=== PATIENT | male | born 1990 | race American Indian/Alaskan Native ===

== ENCOUNTER 2022-01-28 23:23 | Inpatient (IN) | payer SELFPAY ==
[2022-01-28] MEDS ORDERED: SODIUM CHLORIDE 0.9% 1000 ML 1,000 ML IV ONE (23:26)
[2022-01-28] MEDS ORDERED: ONDANSETRON 4 MG/2 ML INJ IV ONE (23:28)
[2022-01-29 00:01] LABS: Hematocrit 49.4 % (35.5-45.6); Hemoglobin 16.2 gm/dl (11.8-15.2); Mean Corpuscular HGB Conc 33 % (32-34); Mean Corpuscular Volume 90 fl (84-94); Platelet Count 362 K/mm3 (140-440); Red Cell Distribution Width 12.9 % (13.2-15.2)
[2022-01-29 00:13] LABS: Alanine Aminotransferase 32 units/L (7-56); BUN/Creatinine Ratio 14; Blood Urea Nitrogen 15 mg/dL (9-20); Calcium 9.9 mg/dL (8.4-10.2); Hemolysis Index 13
[2022-01-29] MEDS ORDERED: ONDANSETRON 4 MG/2 ML INJ ONE (02:21)
[2022-01-29] MEDS ORDERED: SODIUM CHLORIDE 0.9% 1000 ML 1,000 ML IV ONE ×2 (02:36→05:21)
[2022-01-29] MEDS ORDERED: ONDANSETRON 4 MG/2 ML INJ IV ONE (02:36)
[2022-01-29] MEDS ORDERED: MORPHINE 4 MG/1 ML INJ IV ONE (02:36)
[2022-01-29 03:48] LABS: Basophils % (Manual) 0 % (0.0-1.8); Eosinophils % (Manual) 0 % (0.0-4.3); RBC Morphology Normal; Total Cells Counted 100
[2022-01-29] MEDS ORDERED: ACETAMINOPHEN 325 MG/10.15 ML ORAL LIQD UNIT DOSE PO ONE (04:05)
--- NOTE | 2022-01-29 04:53 | Cat Scan Report ---
CT abdomen pelvis w con INDICATION / CLINICAL INFORMATION: pain. TECHNIQUE: Axial CT imaging of abdomen and pelvis was obtained with 100 mL Omnipaque 350 IV contrast. Coronal an d sagittal reformatted imaging obtained and reviewed. All CT scans at this location are performed us ing CT dose reduction for ALARA by means of automated exposure control. COMPARISON: None available. FINDINGS: CT abdomen with contrast demonstrates mild to moderate hepatic steatosis. Liver is mildly enlarged. S pleen, kidneys, and adrenal glands appear unremarkable. Abdominal aorta is unremarkable. There is flu id noted throughout the mid upper abdomen in the general area of the pancreas. Although I do not see distinct evidence of acute pancreatitis, the fluid seen in the soft tissues adjacent to the pancreas would suggest the presence of acute or subacute pancreatitis. Gallbladder is present. No biliary dila tation. CT pelvis with contrast does not demonstrate mass, free fluid, or focal inflammatory process. Normal appendix is present in the right lower quadrant. GI tract is mostly normal. The transverse colon and descending colon are completely collapsed and is difficult to discern possible mild colitis versus co lonic collapse. Visualized lung bases are clear. No acute osseous abnormality noted. IMPRESSION: 1. Small amount of nonenhancing nonloculated fluid is seen in the upper abdomen, adjacent to the panc reas. The most likely etiology is due to acute or subacute pancreatitis. However, the pancreatic pare nchyma appears grossly normal time. Please correlate with amylase and lipase levels. 2. Mild to moderate hepatic steatosis. 3. Questionable mild colitis of the transverse and descending colon versus complete collapse of the c olon. Signer Name: Corrine Kulkarni MD Signed: 01/29/2022 4:48 AM Workstation Name: [id number]
[2022-01-29] MEDS ORDERED: ERTAPENEM 1 GM in SODIUM CHLORIDE 0.9% 50 ML IV ONE (05:07)
[2022-01-29] MEDS ORDERED: HYDROmorphone 2 MG/1 ML INJ IV ONE (05:22)
[2022-01-29 05:48] LABS: Amphetamine Screen,Urine Negative; Benzodiazepines Screen,Urine Negative; Cannabinoid Screen,Urine Negative; Cocaine Screen,Urine Negative; Methadone Screen,Urine Negative
[2022-01-29 06:03] LABS: Opiate Screen,Urine Positive
[2022-01-29 06:05] LABS: Color,Urine Yellow (Yellow)
--- NOTE | 2022-01-29 06:08 | Emergency Department Report ---
ED N/V/D HPI - General Chief complaint: Nausea/Vomiting/Diarrhea Stated complaint: VOMITING x3 DAYS PUI?: No Source: patient Mode of arrival: Ambulatory Limitations: No Limitations - History of Present Illness Initial comments: pt came in due to vomiting for 12 hours, taking alcohol for 3 days MD complaint: nausea, vomiting, abdominal pain -: Gradual, days(s) Description of Vomiting: food contents Associated Abdominal Pain: Yes Location: diffuse Severity: moderate Quality: aching Consistency: constant Improves with: none Worsens with: none Associated Symptoms: denies: denies other symptoms, myalgias - Related Data Allergies Allergy/AdvReac Type Severity Reaction Status Date / Time No Known Allergies Allergy Verified 01/29/22 01:05 ED Review of Systems ROS: Stated complaint: VOMITING x3 DAYS Other details as noted in HPI Constitutional: denies: chills, fever Eyes: denies: eye pain, eye discharge, vision change ENT: denies: ear pain, throat pain Respiratory: denies: cough, shortness of breath, wheezing Cardiovascular: denies: chest pain, palpitations Endocrine: no symptoms reported Gastrointestinal: denies: abdominal pain, nausea, diarrhea Genitourinary: denies: urgency, dysuria Musculoskeletal: denies: back pain, joint swelling, arthralgia Skin: denies: rash, lesions Neurological: denies: headache, weakness, paresthesias Psychiatric: denies: anxiety, depression Hematological/Lymphatic: denies: easy bleeding, easy bruising ED Past Medical Hx - Past Medical History Previous Medical History?: Yes Hx Hypertension: No Hx HIV: Yes - Surgical History Past Surgical History?: No - Social History Smoking Status: Current Every Day Smoker Substance Use Type: None ED Physical Exam - General Limitations: No Limitations General appearance: alert, in distress - Head Head exam: Present: atraumatic, normocephalic - Eye Eye exam: Present: normal appearance - ENT ENT exam: Present: mucous membranes moist - Neck Neck exam: Present: normal inspection - Respiratory Respiratory exam: Present: normal lung sounds bilaterally. Absent: respiratory distress - Cardiovascular Cardiovascular Exam: Present: regular rate, normal rhythm. Absent: systolic murmur, diastolic murmur, rubs, gallop - GI/Abdominal GI/Abdominal exam: Present: tenderness, normal bowel sounds - Rectal Rectal exam: Present: deferred - Extremities Exam Extremities exam: Present: normal inspection - Back Exam Back exam: Present: normal inspection - Neurological Exam Neurological exam: Present: alert, oriented X3 - Psychiatric Psychiatric exam: Present: normal affect, normal mood - Skin Skin exam: Present: warm, dry, intact, normal color. Absent: rash ED Course Vital Signs 01/29/22 01/29/22 01/29/22 01:03 02:26 03:58 Temperature 98.1 F 100.6 F H Pulse Rate 107 H 104 H Respiratory 18 20 21 Rate Blood Pressure 112/45 127/85 [Left] O2 Sat by Pulse 98 96 97 Oximetry 01/29/22 01/29/22 04:00 05:29 Temperature 100.0 F H Pulse Rate 89 Respiratory 20 16 Rate Blood Pressure 121/59 [Left] O2 Sat by Pulse 99 Oximetry ED Medical Decision Making - Lab Data Result diagrams: 01/28/22 23:35 01/28/22 23:35 - Radiology Data Radiology results: report reviewed, image reviewed - Medical Decision Making sepsis work up , fludis cultures and abx , pain meds and abx given ct scan shwoed pnacretaitis , will admit Critical care attestation.: If time is entered above; I have spent that time in minutes in the direct care of this critically ill patient, excluding procedure time. ED Disposition Clinical Impression: Fever, Pancreatitis, Colitis, Sepsis Disposition: ADMITTED INPATIENT Is pt being admited?: Yes Does the pt Need Aspirin: No Condition: Fair
[2022-01-29 06:12] LABS: Hyaline Casts,Urine 1 /LPF; Mucus,Urine 3+ /HPF
--- NOTE | 2022-01-29 07:17 | History and Physical Report ---
History of Present Illness Date of examination: 01/29/22 Date of admission: 01/29/22 Chief complaint: Abdominal pain Nausea vomiting diarrhea History of present illness: 31 years old male with past medical history of HIV and alcohol abuse was brought to the emergency room because of abdominal pain nausea vomiting and diarrhea for the last 12 hours. Patient is a alcohol abuser drinking alcohol for the last 3 days. Abdominal pain is 9/10. In the emergency room CT scan of the abdomen shows pancreatitis also mild to moderate hepatic steatosis and mild colitis of the transverse and descending colon versus complete collapse of the colon. Also patient WBC is 23.4. Lactic acid 9.50, potassium 3.3 and lipase 233. We are going to admit the patient. We will put the patient on IV fluid, nothing by mouth, antibiotic and consult GI for evaluation Past History Past Medical History: HIV/AIDS, other (Alcohol abuse) Past Surgical History: No surgical history Social history: smoking, alcohol abuse Family history: hypertension Medications and Allergies Allergies Allergy/AdvReac Type Severity Reaction Status Date / Time No Known Allergies Allergy Verified 01/29/22 01:05 Review of Systems All systems: negative Gastrointestinal: abdominal pain, nausea, vomiting, diarrhea Exam - Constitutional Vitals: Temp Pulse Resp BP Pulse Ox 99.9 F H 94 H 19 110/56 93 01/29/22 06:25 01/29/22 06:15 01/29/22 06:15 01/29/22 06:15 01/29/22 06:15 General appearance: Present: no acute distress, well-nourished - EENT Eyes: Present: PERRL ENT: hearing intact, clear oral mucosa - Neck Neck: Present: supple, normal ROM - Respiratory Respiratory effort: normal Respiratory: bilateral: CTA - Cardiovascular Heart Sounds: Present: S1 & S2. Absent: rub, click - Extremities Extremities: pulses symmetrical, No edema Peripheral Pulses: within normal limits - Abdominal General gastrointestinal: Present: soft, non-tender, non-distended, normal bowel sounds Male genitourinary: Present: normal - Integumentary Integumentary: Present: clear, warm, dry - Musculoskeletal Musculoskeletal: gait normal, strength equal bilaterally - Psychiatric Psychiatric: appropriate mood/affect, intact judgment & insight - Neurologic Neurologic: CNII-XII intact, moves all extremities HEART Score - HEART Score Troponin: Troponin T < 0.010 ng/mL (0.00-0.029) 01/28/22 23:35 Results - Labs CBC & Chem 7: 01/28/22 23:35 01/28/22 23:35 Labs: Laboratory Last Values WBC 23.4 K/mm3 (4.5-11.0) H 01/28/22 23:35 RBC 5.50 M/mm3 (3.65-5.03) H 01/28/22 23:35 Hgb 16.2 gm/dl (11.8-15.2) H 01/28/22 23:35 Hct 49.4 % (35.5-45.6) H 01/28/22 23:35 MCV 90 fl (84-94) 01/28/22 23:35 MCH 30 pg (28-32) 01/28/22 23:35 MCHC 33 % (32-34) 01/28/22 23:35 RDW 12.9 % (13.2-15.2) L 01/28/22 23:35 Plt Count 362 K/mm3 (140-440) 01/28/22 23:35 Add Manual Diff Complete 01/28/22 23:35 Total Counted 100 01/28/22 23:35 Seg Neuts % (Manual) 79.0 % (40.0-70.0) H 01/28/22 23:35 Band Neutrophils % 0 % 01/28/22 23:35 Lymphocytes % (Manual) 16.0 % (13.4-35.0) 01/28/22 23:35 Reactive Lymphs % (Man) 0 % 01/28/22 23:35 Monocytes % (Manual) 5.0 % (0.0-7.3) 01/28/22 23:35 Eosinophils % (Manual) 0 % (0.0-4.3) 01/28/22 23:35 Basophils % (Manual) 0 % (0.0-1.8) 01/28/22 23:35 Metamyelocytes % 0 % 01/28/22 23:35 Myelocytes % 0 % 01/28/22 23:35 Promyelocytes % 0 % 01/28/22 23:35 Blast Cells % 0 % 01/28/22 23:35 Nucleated RBC % Not Reportable 01/28/22 23:35 Seg Neutrophils # Man 18.5 K/mm3 (1.8-7.7) H 01/28/22 23:35 Band Neutrophils # 0.0 K/mm3 01/28/22 23:35 Lymphocytes # (Manual) 3.7 K/mm3 (1.2-5.4) 01/28/22 23:35 Abs React Lymphs (Man) 0.0 K/mm3 01/28/22 23:35 Monocytes # (Manual) 1.2 K/mm3 (0.0-0.8) H 01/28/22 23:35 Eosinophils # (Manual) 0.0 K/mm3 (0.0-0.4) 01/28/22 23:35 Basophils # (Manual) 0.0 K/mm3 (0.0-0.1) 01/28/22 23:35 Metamyelocytes # 0.0 K/mm3 01/28/22 23:35 Myelocytes # 0.0 K/mm3 01/28/22 23:35 Promyelocytes # 0.0 K/mm3 01/28/22 23:35 Blast Cells # 0.0 K/mm3 01/28/22 23:35 WBC Morphology Not Reportable 01/28/22 23:35 Hypersegmented Neuts Not Reportable 01/28/22 23:35 Hyposegmented Neuts Not Reportable 01/28/22 23:35 Hypogranular Neuts Not Reportable 01/28/22 23:35 Smudge Cells Not Reportable 01/28/22 23:35 Toxic Granulation Not Reportable 01/28/22 23:35 Toxic Vacuolation Not Reportable 01/28/22 23:35 Dohle Bodies Not Reportable 01/28/22 23:35 Pelger-Huet Anomaly Not Reportable 01/28/22 23:35 Gwen Rods Not Reportable 01/28/22 23:35 Platelet Estimate Not Reportable 01/28/22 23:35 Clumped Platelets Not Reportable 01/28/22 23:35 Plt Clumps, EDTA Not Reportable 01/28/22 23:35 Large Platelets Not Reportable 01/28/22 23:35 Giant Platelets Not Reportable 01/28/22 23:35 Platelet Satelliting Not Reportable 01/28/22 23:35 Plt Morphology Comment Not Reportable 01/28/22 23:35 RBC Morphology Normal 01/28/22 23:35 Dimorphic RBCs Not Reportable 01/28/22 23:35 Polychromasia Not Reportable 01/28/22 23:35 Hypochromasia Not Reportable 01/28/22 23:35 Poikilocytosis Not Reportable 01/28/22 23:35 Anisocytosis Not Reportable 01/28/22 23:35 Microcytosis Not Reportable 01/28/22 23:35 Macrocytosis Not Reportable 01/28/22 23:35 Spherocytes Not Reportable 01/28/22 23:35 Pappenheimer Bodies Not Reportable 01/28/22 23:35 Sickle Cells Not Reportable 01/28/22 23:35 Target Cells Not Reportable 01/28/22 23:35 Tear Drop Cells Not Reportable 01/28/22 23:35 Ovalocytes Not Reportable 01/28/22 23:35 Helmet Cells Not Reportable 01/28/22 23:35 Tan-Aleneva Bodies Not Reportable 01/28/22 23:35 Harmony Rings Not Reportable 01/28/22 23:35 Josh Cells Not Reportable 01/28/22 23:35 Bite Cells Not Reportable 01/28/22 23:35 Crenated Cell Not Reportable 01/28/22 23:35 Elliptocytes Not Reportable 01/28/22 23:35 Acanthocytes (Spur) Not Reportable 01/28/22 23:35 Rouleaux Not Reportable 01/28/22 23:35 Hemoglobin C Crystals Not Reportable 01/28/22 23:35 Schistocytes Not Reportable 01/28/22 23:35 Malaria parasites Not Reportable 01/28/22 23:35 Antonio Bodies Not Reportable 01/28/22 23:35 Hem Pathologist Commnt No 01/28/22 23:35 Sodium 139 mmol/L (137-145) 01/28/22 23:35 Potassium 3.3 mmol/L (3.6-5.0) L 01/28/22 23:35 Chloride 96.8 mmol/L (98-107) L 01/28/22 23:35 Carbon Dioxide 17 mmol/L (22-30) L 01/28/22 23:35 Anion Gap 29 mmol/L 01/28/22 23:35 BUN 15 mg/dL (9-20) 01/28/22 23:35 Creatinine 1.1 mg/dL (0.8-1.3) 01/28/22 23:35 Estimated GFR > 60 ml/min 01/28/22 23:35 BUN/Creatinine Ratio 14 % 01/28/22 23:35 Glucose 103 mg/dL (75-100) H 01/28/22 23:35 Ketones Quantitative Negative (Negative) 01/28/22 23:35 Lactic Acid 3.10 mmol/L (0.7-2.0) H* 01/29/22 05:00 Calcium 9.9 mg/dL (8.4-10.2) 01/28/22 23:35 Total Bilirubin 0.50 mg/dL (0.1-1.2) 01/28/22 23:35 AST 37 units/L (5-40) 01/28/22 23:35 ALT 32 units/L (7-56) 01/28/22 23:35 Alkaline Phosphatase 62 units/L (35-129) 01/28/22 23:35 Total Creatine Kinase 135 units/L (55-170) 01/28/22 23:35 Total Creatine Kinase 135 units/L (55-170) 01/28/22 23:35 Troponin T < 0.010 ng/mL (0.00-0.029) 01/28/22 23:35 Total Protein 8.7 g/dL (6.3-8.2) H 01/28/22 23:35 Albumin 5.0 g/dL (3.9-5) 01/28/22 23:35 Albumin/Globulin Ratio 1.4 % 01/28/22 23:35 Lipase 233 units/L (13-60) H 01/28/22 23:35 Urine Color Yellow (Yellow) 01/28/22 Unknown Urine Turbidity Clear (Clear) 01/28/22 Unknown Specific [place] (Man) 1.010 (1.003-1.030) 01/28/22 Unknown Ur Protein (Man) 1+ mg/dL (Negative) 01/28/22 Unknown Ur Ketones (Man) 4+ (Negative) 01/28/22 Unknown Ur Nitrite (Man) Negative (Negative) 01/28/22 Unknown Urine Bilirubin (Man) Negative (Negative) 01/28/22 Unknown Leukocyte Esterase (Man) Negative (Negative) 01/28/22 Unknown Urine WBC (Auto) 1.0 /HPF (0.0-6.0) 01/28/22 Unknown Urine RBC (Auto) 1.0 /HPF (0.0-6.0) 01/28/22 Unknown U Epithel Cells (Auto) < 1.0 /HPF (0-13.0) 01/28/22 Unknown Urine RBC (Manual) Negative (Negative) 01/28/22 Unknown Hyaline Casts 1 /LPF 01/28/22 Unknown Urine Mucus 3+ /HPF 01/28/22 Unknown Salicylates < 0.3 mg/dL (2.8-20.0) L 01/28/22 23:35 Urine Opiates Screen Positive 01/28/22 05:33 Urine Methadone Screen Negative 01/28/22 05:33 Ur Barbiturates Screen Negative 01/28/22 05:33 Ur Phencyclidine Scrn Negative 01/28/22 05:33 Ur Amphetamines Screen Negative 01/28/22 05:33 U Benzodiazepines Scrn Negative 01/28/22 05:33 Urine Cocaine Screen Negative 01/28/22 05:33 U Marijuana (THC) Screen Negative 01/28/22 05:33 Drugs of Abuse Note Disclamer 01/28/22 05:33 Plasma/Serum Alcohol 0.05 % (0-0.07) 01/28/22 23:35 - Imaging and Cardiology CT scan - abdomen: report reviewed Assessment and Plan VTE prophylaxis?: Chemical Plan of care discussed with patient/family: Yes - Patient Problems (1) Pancreatitis Status: Acute Plan to address problem: Admit the patient to the medical floor. NPO. D5 half-normal saline at the rate of 100 cc/h. Pepcid 20 mg IV every 12 hours. Levaquin 750 mg IV daily and metronidazole 500 mg IV every 12 hours. Morphine 2 mg IV every 4 hours as needed. GI consultation. (2) Colitis Status: Acute Plan to address problem: Levaquin 750 mg IV daily and metronidazole 500 mg IV every 12 hours. Morphine 2 mg IV every 4 hours as needed. GI consultation. (3) Alcohol abuse Status: Acute Plan to address problem: We counseled regarding quit drinking. We put the patient on thiamine folic acid and banana bag IV daily (4) Tobacco abuse Status: Acute Plan to address problem: We counseled the patient regarding quit smoking. We put the patient on nicotine patch. (5) Fever Status: Acute Plan to address problem: Tylenol 650 mg p.o. every 6 hours as needed. Levaquin 750 mg IV daily and metronidazole 500 mg IV every 12 hours. Morphine 2 mg IV every 4 hours as needed. GI consultation. (6) Sepsis Status: Acute Plan to address problem: NPO. D5 half-normal saline at the rate of 100 cc/h. Pepcid 20 mg IV every 12 hours. Levaquin 750 mg IV daily and metronidazole 500 mg IV every 12 hours. Morphine 2 mg IV every 4 hours as needed. GI consultation. (7) DVT prophylaxis Status: Acute
--- NOTE | 2022-01-29 07:22 | Ultrasound Report ---
ULTRASOUND ABDOMEN, LIMITED (RIGHT UPPER QUADRANT) INDICATION: pancreatitis. COMPARISON: CT abdomen/pelvis 01/29/2022 FINDINGS: Pancreas: Visualized portion shows no significant abnormality. Peripancreatic fluid noted on CT scan is not documented sonographically. Liver: The liver is mildly echogenic consistent with hepatic steatosis. Main portal vein is patent wi th hepatopedal flow. Gallbladder: Normal. No gallstones or gallbladder wall thickening. Bile ducts: Normal. Common Bile Duct measures 2 mm. Free fluid: None. Additional Findings: Right kidney is normal. IMPRESSION: 1. Mildly echogenic liver consistent with hepatic steatosis. 2. Sonographically the pancreas has a normal appearance. This does not exclude mild acute pancreatiti s. The small amount of fluid seen in the general region of the pancreas on CT scan earlier today is n ot appreciated sonographically. Signer Name: Corrine Kulkarni MD Signed: 01/29/2022 7:17 AM Workstation Name: [id number]
[2022-01-29] MEDS ORDERED: MORPHINE 4 MG/1 ML INJ IV PRN (08:00)
[2022-01-29] MEDS ORDERED: ONDANSETRON 4 MG/2 ML INJ IV PRN ×2 (08:30→18:00)
[2022-01-29] MEDS ORDERED: ALBUTEROL 2.5 MG/3 ML NEBU IH PRN (08:30)
[2022-01-29] MEDS ORDERED: ACETAMINOPHEN 325 MG TAB PO PRN (08:30)
[2022-01-29] MEDS: IPRATROPIUM/ALBUTEROL SULFATE 3 ML AMPUL.NEB IH SCH ×3 (09:00→20:37)
[2022-01-29] MEDS: metroNIDAZOLE/NS 500 MG/100 ML 500 MG/100 ML BAG IV SCH ×2 (09:30→16:03)
[2022-01-29] MEDS: HEPARIN 5,000 UNIT/1 ML VIAL SUB-Q SCH ×2 (12:05→22:31)
[2022-01-29] MEDS: D5W/0.45% NACL 1,000 ML IV SCH (13:05)
[2022-01-29] MEDS: MORPHINE 2 MG/1 ML INJ IV PRN ×2 (13:06→17:10)
[2022-01-29] MEDS: FAMOTIDINE 20 MG/2 ML INJ IV SCH ×2 (13:15→22:31)
--- NOTE | 2022-01-29 16:44 | Event Note ---
Date: 01/29/22 Full consult dictated - basic pancreatitis management - agree w/ IV antibiotics - conservative management - will follow
[2022-01-30] MEDS: metroNIDAZOLE/NS 500 MG/100 ML 500 MG/100 ML BAG IV SCH ×3 (01:38→19:17)
[2022-01-30] MEDS: D5W/0.45% NACL 1,000 ML IV SCH ×2 (01:42→22:50)
[2022-01-30 05:26] LABS: Basophils % (Auto) 0.4 % (0.0-1.8); Eosinophils # (Auto) 0.1 K/mm3 (0.0-0.4); Hematocrit 38.4 % (35.5-45.6); Hemoglobin 12.8 gm/dl (11.8-15.2); Lymphocytes # (Auto) 1.8 K/mm3 (1.2-5.4); Lymphocytes % (Auto) 17.8 % (13.4-35.0); Mean Corpuscular HGB Conc 33 % (32-34); Mean Corpuscular Volume 90 fl (84-94); Monocytes # (Auto) 0.7 K/mm3 (0.0-0.8); Monocytes % (Auto) 6.8 % (0.0-7.3); Platelet Count 218 K/mm3 (140-440); Red Blood Count 4.29 M/mm3 (3.65-5.03); Red Cell Distribution Width 12.8 % (13.2-15.2)
--- NOTE | 2022-01-30 05:37 | Consultation ---
DATE OF CONSULTATION: 01/29/2022 REFERRING PHYSICIAN: . INDICATION: Abdominal pain. HISTORY OF PRESENT ILLNESS: The patient is a 31-year-old male, HIV positive, alcohol abuse, presents for abdominal pain. The patient reports two to three days of nausea, vomiting, increased upper abdominal pain. The patient reports he does drink and has done so chronically. He reports no lower GI symptoms including diarrhea, constipation. The patient subsequently came to the Emergency Room where CT and labs were consistent with pancreatitis. The patient subsequently admitted and GI consulted to aid in management. The patient denies a history of pancreatitis in the past. No other specific complaints. PAST MEDICAL HISTORY: HIV positive. MEDICATIONS: Reviewed and updated in chart. ALLERGIES: No known drug allergies. SOCIAL HISTORY: Denies alcohol, tobacco or drug abuse. FAMILY HISTORY: Negative for colon cancer, IBD, or liver disease. REVIEW OF SYSTEMS: GENERAL: Reports some weakness. HEENT: Denies visual complaints or tinnitus. PULMONARY: Denies shortness of breath or chest pain. GASTROINTESTINAL: Reports abdominal pain, nausea or vomiting. All points of 13-point review of system otherwise negative. PHYSICAL EXAMINATION: VITAL SIGNS: Temperature of 98.7, pulse 64, respirations 18, blood pressure 120/70. GENERAL: Well-nourished male, in mild distress. HEENT: Pupils round and reactive. PULMONARY: Clear to auscultation bilaterally. CARDIOVASCULAR: Regular rate and rhythm. Normal S1, S2. ABDOMEN: Soft. SKIN: No obvious rashes. LABORATORY DATA: Pertinent for white count of 23.4, hemoglobin and hematocrit of 16.0 and 49.4, platelet count of 302. Chem-7: Sodium of 139, potassium 3.3, chloride 97, CO2 of 17, BUN and creatinine of 15 and 1.1, AST and ALT and total bilirubin within normal limits. Lipase of 223. CT scan abdomen and pelvis with contrast performed on 01/28/2022 showed small enlarging non-loculated fluid in the upper abdominal area adjacent to the pancreas, raising the possibility of subacute pancreatitis. Also, questionable mild colitis of the transverse and descending colon versus collapse of the colon. ASSESSMENT: A 31-year-old male with history of chronic alcohol abuse, human immunodeficiency virus positive, now presents with abdominal pain, nausea, vomiting. The patient had labs and CT scan raising possibility of pancreatitis. There is also question of colitis. The patient's symptoms do not suggest that. Management as noted below. PLAN: 1. We will review CT scan. 2. Basic pancreatitis management including n.p.o., IV fluids and pain medications. 3. Start p.o. when symptoms improved. 4. We will follow CRP. 5. Agree with Levaquin and Flagyl as ordered. 6. No indication for colonoscopy or endoscopy at this time. 7. When tolerating soft diet, okay to discharge from GI standpoint. 8. We will follow. TID: [id number] RECEIPT: [id number] CAB/RES/RAJESH cc:
[2022-01-30 05:45] LABS: BUN/Creatinine Ratio 7; Blood Urea Nitrogen 7 mg/dL (9-20); Calcium 8.5 mg/dL (8.4-10.2); Hemolysis Index 0
[2022-01-30] MEDS: FAMOTIDINE 20 MG/2 ML INJ IV SCH ×2 (09:58→22:49)
[2022-01-30] MEDS: HEPARIN 5,000 UNIT/1 ML VIAL SUB-Q SCH ×2 (09:58→22:49)
[2022-01-30] MEDS ORDERED: NON-FORMULARY EACH (Elviteg/Cob/Emtri/Tenof Alafen [Genvoya Tablet] 1 EACH Tablet) PO SCH (10:00)
--- NOTE | 2022-01-30 10:22 | Progress Note ---
Assessment and Plan Assessment and plan: #Sepsis secondary to acute pancreatitis #Acute colitis -likely secondary to alcohol abuse -continue IV hydration, PRN pain medications -will advance diet as tolerated -continue levaquin and flagyl for possible colitis seen on CT -GI following, assistance appreciated #Alcohol abuse #Tobacco abuse -patient reports binge drinking and lack of withdrawal when he is alcohol free -Smoking and alcohol cessation counseling, supportive care, behavior change counseling, +15 minutes #HIV infection -continue appropriate Genvoya substituted anti-retrovirals #Advanced care planning -Disease education conducted, care plan discussed, diagnoses discussed, prognosis discussed, and patient acknowledges understanding with care plan -Time: +30 min History Interval history: No acute events overnight. Patient reports binge drinking and has never had withdrawal in the past with alcohol cessation. He continues to have epigastric pain but his nausea/vomiting has resolved. He has no other complaints at this time. Hospitalist Physical - Physical exam Narrative exam: GENERAL: Well-developed well-nourished. In no acute distress. HEENT: Normocephalic. Atraumatic. NECK: Supple. CHEST/LUNGS: CTAB on room air HEART/CARDIOVASCULAR: RRR. No murmur, rubs or gallops appreciated. ABDOMEN: +BS. ND. TTP at the epigastric region. SKIN: No rashes noted. NEURO: No focal motor deficit. Follows all commands. MUSCULOSKELETAL: No joint effusion EXTREMITIES: No cyanosis, clubbing or edema. PSYCH: Cooperative. - Constitutional Vitals: Temp Pulse Resp BP Pulse Ox 98.7 F 64 16 120/68 98 01/29/22 12:58 01/29/22 12:58 01/30/22 01:00 01/29/22 12:58 01/30/22 01:00 General appearance: Present: no acute distress, well-nourished HEART Score - HEART Score Troponin: Troponin T < 0.010 ng/mL (0.00-0.029) 01/28/22 23:35 Results - Labs CBC & Chem 7: 01/30/22 04:46 01/30/22 04:46 Labs: Laboratory Last Values WBC 10.0 K/mm3 (4.5-11.0) 01/30/22 04:46 RBC 4.29 M/mm3 (3.65-5.03) 01/30/22 04:46 Hgb 12.8 gm/dl (11.8-15.2) D 01/30/22 04:46 Hct 38.4 % (35.5-45.6) D 01/30/22 04:46 MCV 90 fl (84-94) 01/30/22 04:46 MCH 30 pg (28-32) 01/30/22 04:46 MCHC 33 % (32-34) 01/30/22 04:46 RDW 12.8 % (13.2-15.2) L 01/30/22 04:46 Plt Count 218 K/mm3 (140-440) 01/30/22 04:46 Lymph % (Auto) 17.8 % (13.4-35.0) 01/30/22 04:46 [place] % (Auto) 6.8 % (0.0-7.3) 01/30/22 04:46 Eos % (Auto) 1.0 % (0.0-4.3) 01/30/22 04:46 Baso % (Auto) 0.4 % (0.0-1.8) 01/30/22 04:46 Lymph # (Auto) 1.8 K/mm3 (1.2-5.4) 01/30/22 04:46 [place] # (Auto) 0.7 K/mm3 (0.0-0.8) 01/30/22 04:46 Eos # (Auto) 0.1 K/mm3 (0.0-0.4) 01/30/22 04:46 Baso # (Auto) 0.0 K/mm3 (0.0-0.1) 01/30/22 04:46 Add Manual Diff Complete 01/28/22 23:35 Total Counted 100 01/28/22 23:35 Seg Neutrophils % 74.0 % (40.0-70.0) H 01/30/22 04:46 Seg Neuts % (Manual) 79.0 % (40.0-70.0) H 01/28/22 23:35 Band Neutrophils % 0 % 01/28/22 23:35 Lymphocytes % (Manual) 16.0 % (13.4-35.0) 01/28/22 23:35 Reactive Lymphs % (Man) 0 % 01/28/22 23:35 Monocytes % (Manual) 5.0 % (0.0-7.3) 01/28/22 23:35 Eosinophils % (Manual) 0 % (0.0-4.3) 01/28/22 23:35 Basophils % (Manual) 0 % (0.0-1.8) 01/28/22 23:35 Metamyelocytes % 0 % 01/28/22 23:35 Myelocytes % 0 % 01/28/22 23:35 Promyelocytes % 0 % 01/28/22 23:35 Blast Cells % 0 % 01/28/22 23:35 Nucleated RBC % Not Reportable 01/28/22 23:35 Seg Neutrophils # 7.4 K/mm3 (1.8-7.7) 01/30/22 04:46 Seg Neutrophils # Man 18.5 K/mm3 (1.8-7.7) H 01/28/22 23:35 Band Neutrophils # 0.0 K/mm3 01/28/22 23:35 Lymphocytes # (Manual) 3.7 K/mm3 (1.2-5.4) 01/28/22 23:35 Abs React Lymphs (Man) 0.0 K/mm3 01/28/22 23:35 Monocytes # (Manual) 1.2 K/mm3 (0.0-0.8) H 01/28/22 23:35 Eosinophils # (Manual) 0.0 K/mm3 (0.0-0.4) 01/28/22 23:35 Basophils # (Manual) 0.0 K/mm3 (0.0-0.1) 01/28/22 23:35 Metamyelocytes # 0.0 K/mm3 01/28/22 23:35 Myelocytes # 0.0 K/mm3 01/28/22 23:35 Promyelocytes # 0.0 K/mm3 01/28/22 23:35 Blast Cells # 0.0 K/mm3 01/28/22 23:35 WBC Morphology Not Reportable 01/28/22 23:35 Hypersegmented Neuts Not Reportable 01/28/22 23:35 Hyposegmented Neuts Not Reportable 01/28/22 23:35 Hypogranular Neuts Not Reportable 01/28/22 23:35 Smudge Cells Not Reportable 01/28/22 23:35 Toxic Granulation Not Reportable 01/28/22 23:35 Toxic Vacuolation Not Reportable 01/28/22 23:35 Dohle Bodies Not Reportable 01/28/22 23:35 Pelger-Huet Anomaly Not Reportable 01/28/22 23:35 Gwen Rods Not Reportable 01/28/22 23:35 Platelet Estimate Not Reportable 01/28/22 23:35 Clumped Platelets Not Reportable 01/28/22 23:35 Plt Clumps, EDTA Not Reportable 01/28/22 23:35 Large Platelets Not Reportable 01/28/22 23:35 Giant Platelets Not Reportable 01/28/22 23:35 Platelet Satelliting Not Reportable 01/28/22 23:35 Plt Morphology Comment Not Reportable 01/28/22 23:35 RBC Morphology Normal 01/28/22 23:35 Dimorphic RBCs Not Reportable 01/28/22 23:35 Polychromasia Not Reportable 01/28/22 23:35 Hypochromasia Not Reportable 01/28/22 23:35 Poikilocytosis Not Reportable 01/28/22 23:35 Anisocytosis Not Reportable 01/28/22 23:35 Microcytosis Not Reportable 01/28/22 23:35 Macrocytosis Not Reportable 01/28/22 23:35 Spherocytes Not Reportable 01/28/22 23:35 Pappenheimer Bodies Not Reportable 01/28/22 23:35 Sickle Cells Not Reportable 01/28/22 23:35 Target Cells Not Reportable 01/28/22 23:35 Tear Drop Cells Not Reportable 01/28/22 23:35 Ovalocytes Not Reportable 01/28/22 23:35 Helmet Cells Not Reportable 01/28/22 23:35 [place] Bodies Not Reportable 01/28/22 23:35 [place] Rings Not Reportable 01/28/22 23:35 [place] Cells Not Reportable 01/28/22 23:35 Bite Cells Not Reportable 01/28/22 23:35 Crenated Cell Not Reportable 01/28/22 23:35 Elliptocytes Not Reportable 01/28/22 23:35 Acanthocytes (Spur) Not Reportable 01/28/22 23:35 Rouleaux Not Reportable 01/28/22 23:35 Hemoglobin C Crystals Not Reportable 01/28/22 23:35 Schistocytes Not Reportable 01/28/22 23:35 Malaria parasites Not Reportable 01/28/22 23:35 [place] Bodies Not Reportable 01/28/22 23:35 Hem Pathologist Commnt No 01/28/22 23:35 Sodium 136 mmol/L (137-145) L 01/30/22 04:46 Potassium 3.6 mmol/L (3.6-5.0) 01/30/22 04:46 Chloride 99.5 mmol/L (98-107) 01/30/22 04:46 Carbon Dioxide 28 mmol/L (22-30) D 01/30/22 04:46 Anion Gap 12 mmol/L 01/30/22 04:46 BUN 7 mg/dL (9-20) L 01/30/22 04:46 Creatinine 1.0 mg/dL (0.8-1.3) 01/30/22 04:46 Estimated GFR > 60 ml/min 01/30/22 04:46 BUN/Creatinine Ratio 7 % 01/30/22 04:46 Glucose 92 mg/dL (75-100) 01/30/22 04:46 Ketones Quantitative Negative (Negative) 01/28/22 23:35 Lactic Acid 1.40 mmol/L (0.7-2.0) 01/29/22 07:30 Calcium 8.5 mg/dL (8.4-10.2) 01/30/22 04:46 Total Bilirubin 0.50 mg/dL (0.1-1.2) 01/28/22 23:35 AST 37 units/L (5-40) 01/28/22 23:35 ALT 32 units/L (7-56) 01/28/22 23:35 Alkaline Phosphatase 62 units/L (35-129) 01/28/22 23:35 Total Creatine Kinase 135 units/L (55-170) 01/28/22 23:35 Total Creatine Kinase 135 units/L (55-170) 01/28/22 23:35 Troponin T < 0.010 ng/mL (0.00-0.029) 01/28/22 23:35 Total Protein 8.7 g/dL (6.3-8.2) H 01/28/22 23:35 Albumin 5.0 g/dL (3.9-5) 01/28/22 23:35 Albumin/Globulin Ratio 1.4 % 01/28/22 23:35 Lipase 233 units/L (13-60) H 01/28/22 23:35 Urine Color Yellow (Yellow) 01/28/22 Unknown Urine Turbidity Clear (Clear) 01/28/22 Unknown Specific [place] (Man) 1.010 (1.003-1.030) 01/28/22 Unknown Ur Protein (Man) 1+ mg/dL (Negative) 01/28/22 Unknown Ur Ketones (Man) 4+ (Negative) 01/28/22 Unknown Ur Nitrite (Man) Negative (Negative) 01/28/22 Unknown Urine Bilirubin (Man) Negative (Negative) 01/28/22 Unknown Leukocyte Esterase (Man) Negative (Negative) 01/28/22 Unknown Urine WBC (Auto) 1.0 /HPF (0.0-6.0) 01/28/22 Unknown Urine RBC (Auto) 1.0 /HPF (0.0-6.0) 01/28/22 Unknown U Epithel Cells (Auto) < 1.0 /HPF (0-13.0) 01/28/22 Unknown Urine RBC (Manual) Negative (Negative) 01/28/22 Unknown Hyaline Casts 1 /LPF 01/28/22 Unknown Urine Mucus 3+ /HPF 01/28/22 Unknown Salicylates < 0.3 mg/dL (2.8-20.0) L 01/28/22 23:35 Urine Opiates Screen Positive 01/28/22 05:33 Urine Methadone Screen Negative 01/28/22 05:33 Ur Barbiturates Screen Negative 01/28/22 05:33 Ur Phencyclidine Scrn Negative 01/28/22 05:33 Ur Amphetamines Screen Negative 01/28/22 05:33 U Benzodiazepines Scrn Negative 01/28/22 05:33 Urine Cocaine Screen Negative 01/28/22 05:33 U Marijuana (THC) Screen Negative 01/28/22 05:33 Drugs of Abuse Note Disclamer 01/28/22 05:33 Plasma/Serum Alcohol 0.05 % (0-0.07) 01/28/22 23:35 Baptiste/IV: Voiding Method Toilet Active Medications - Current Medications Current Medications: Generic Name Dose Route Start Last Admin Trade Name Freq PRN Reason Stop Dose Admin Acetaminophen 650 mg 01/29/22 08:30 Acetaminophen 325 Mg Tab PO Q4H PRN Pain MILD(1-3)/Fever >100.5/R[place] Dolutegravir Sodium 50 mg 01/30/22 11:00 Dolutegravir 50 Mg Tab PO DAILY [place] Emtricitabine 200 mg 01/30/22 11:00 Emtricitabine 200 Mg Cap PO QDAY [place] Famotidine 20 mg 01/29/22 10:00 01/30/22 09:58 Famotidine 20 Mg/2 Ml Inj IV 20 mg BID [place] Administration Heparin Sodium (Porcine) 5,000 unit 01/29/22 10:00 01/30/22 09:58 Heparin 5,000 Unit/1 Ml Vial SUB-Q 5,000 unit Q12HR [place] Administration Dextrose/Sodium Chloride 1,000 mls @ 100 mls/hr 01/29/22 08:00 01/30/22 01:42 D5/0.45ns IV 100 mls/hr DIRECT [place] Administration Levofloxacin/Dextrose 750 mg in 150 mls @ 100 mls/hr 01/29/22 09:00 01/30/22 09:57 Levaquin 750mg/150ml IV 100 mls/hr Q24H [place] Administration Protocol Metronidazole 500 mg in 100 mls @ 100 mls/hr 01/29/22 09:00 01/30/22 09:57 Flagyl 500 Mg/100 Ml IV 100 mls/hr Q8H [place] Administration Protocol Morphine Sulfate 2 mg 01/29/22 08:30 01/29/22 17:10 Morphine 2 Mg/1 Ml Inj IV 2 mg Q4H PRN Administration Pain, Moderate (4-6) Morphine Sulfate 4 mg 01/29/22 08:00 01/29/22 22:35 Morphine 4 Mg/1 Ml Inj IV 4 mg Q4H PRN Administration Pain , Severe (7-10) Ondansetron HCl 4 mg 01/29/22 18:00 01/29/22 17:10 Ondansetron 4 Mg/2 Ml Inj IV 4 mg Q4H PRN Administration Nausea And Vomiting Sodium Chloride 10 ml 01/29/22 10:00 01/30/22 09:58 Sodium Chloride 0.9% 10 Ml Flush Syringe IV 10 ml BID [place] Administration Sodium Chloride 10 ml 01/29/22 08:30 Sodium Chloride 0.9% 10 Ml Flush Syringe IV PRN PRN LINE FLUSH Tenofovir Disoproxil Fumarate 300 mg 01/30/22 11:00 Tenofovir 300 Mg Tab PO QDAY [place]
[2022-01-30] MEDS: DOLUTEGRAVIR 50 MG TAB PO SCH (10:36)
[2022-01-30] MEDS: EMTRICITABINE 200 MG CAP PO SCH (10:36)
[2022-01-30] MEDS: TENOFOVIR 300 MG TAB PO SCH (10:36)
--- NOTE | 2022-01-30 14:38 | Gastroenterology Progress Note ---
Assessment and Plan 1. pt h/o alcohol abuse presents w/ abdominal pain with ct scan/labs consistent with pancreatitis and possible colitis - pt symptoms overall improved - start clear liquid diet, advance based on progress - follow labs - continue IV antibiotics - anti-emetics and pain meds as ordered - when tolerating soft diet and stable ok to dc from GI standpoint - no plans to scope - will follow Subjective Date of service: 01/30/22 Interval history: - reports pain overall improving, would like to start liquid diet Objective - Constitutional Vitals: Temp Pulse Resp BP Pulse Ox 98.7 F 64 16 120/68 98 01/29/22 12:58 01/29/22 12:58 01/30/22 01:00 01/29/22 12:58 01/30/22 12:21 General appearance: no acute distress - EENT Eyes: PERRL - Respiratory Respiratory: bilateral: CTA - Cardiovascular Rhythm: regular Heart Sounds: Present: S1 & S2 - Gastrointestinal General gastrointestinal: Present: soft, non-tender, non-distended - Labs CBC & Chem 7: 01/30/22 04:46 01/30/22 04:46 Labs: Laboratory Results - last 24 hr 01/30/22 01/30/22 04:46 04:46 WBC 10.0 RBC 4.29 Hgb 12.8 D Hct 38.4 D MCV 90 MCH 30 MCHC 33 RDW 12.8 L Plt Count 218 Lymph % (Auto) 17.8 [place] % (Auto) 6.8 Eos % (Auto) 1.0 Baso % (Auto) 0.4 Lymph # (Auto) 1.8 [place] # (Auto) 0.7 Eos # (Auto) 0.1 Baso # (Auto) 0.0 Seg Neutrophils % 74.0 H Seg Neutrophils # 7.4 Sodium 136 L Potassium 3.6 Chloride 99.5 Carbon Dioxide 28 D Anion Gap 12 BUN 7 L Creatinine 1.0 Estimated GFR > 60 BUN/Creatinine Ratio 7 Glucose 92 Calcium 8.5
[2022-01-31] MEDS: metroNIDAZOLE/NS 500 MG/100 ML 500 MG/100 ML BAG IV SCH ×3 (01:01→18:51)
[2022-01-31 07:19] LABS: C-Reactive Protein 11.4 mg/dL (0.00-1.30)
[2022-01-31 08:29] LABS: Basophils # (Auto) 0.1 K/mm3 (0.0-0.1); Basophils % (Auto) 0.7 % (0.0-1.8); Eosinophils # (Auto) 0.1 K/mm3 (0.0-0.4); Eosinophils % (Auto) 1.4 % (0.0-4.3); Hemoglobin 13.1 gm/dl (11.8-15.2); Lymphocytes # (Auto) 1.5 K/mm3 (1.2-5.4); Mean Corpuscular HGB Conc 34 % (32-34); Mean Corpuscular Volume 89 fl (84-94); Monocytes # (Auto) 0.5 K/mm3 (0.0-0.8); Platelet Count 222 K/mm3 (140-440); Red Blood Count 4.37 M/mm3 (3.65-5.03); Red Cell Distribution Width 12.6 % (13.2-15.2)
[2022-01-31 08:49] LABS: BUN/Creatinine Ratio 4; Blood Urea Nitrogen 4 mg/dL (9-20); Calcium 8.9 mg/dL (8.4-10.2); Hemolysis Index 1
[2022-01-31] MEDS: TENOFOVIR 300 MG TAB PO SCH (10:43)
[2022-01-31] MEDS: EMTRICITABINE 200 MG CAP PO SCH (10:44)
[2022-01-31] MEDS: DOLUTEGRAVIR 50 MG TAB PO SCH (10:44)
[2022-01-31] MEDS: HEPARIN 5,000 UNIT/1 ML VIAL SUB-Q SCH ×2 (10:45→21:30)
[2022-01-31] MEDS: FAMOTIDINE 20 MG TAB PO SCH ×2 (10:45→21:29)
[2022-01-31] MEDS: D5W/0.45% NACL 1,000 ML IV SCH (10:48)
[2022-01-31] MEDS: FAMOTIDINE 20 MG/2 ML INJ IV SCH (11:43)
--- NOTE | 2022-01-31 15:52 | Gastroenterology Progress Note ---
Assessment and Plan 1. GI: resolving pancreatitis - advance diet as tolerated - continue IV antibiotics, toltal 7 days - if stable in am ok to dc from GI standpoint - will follow Subjective Date of service: 01/31/22 Interval history: - reports pain much improved, tolerating advancing diet Objective - Constitutional Vitals: Temp Pulse Resp BP Pulse Ox 98.3 F 64 15 125/67 97 01/31/22 11:51 01/31/22 11:51 01/31/22 11:51 01/31/22 11:51 01/31/22 11:51 General appearance: no acute distress - EENT Eyes: PERRL - Respiratory Respiratory: bilateral: CTA - Cardiovascular Rhythm: regular Heart Sounds: Present: S1 & S2 - Gastrointestinal General gastrointestinal: Present: soft, non-tender, non-distended - Labs CBC & Chem 7: 01/31/22 07:47 01/31/22 07:47 Labs: Laboratory Results - last 24 hr 01/31/22 01/31/22 01/31/22 06:18 07:47 07:47 WBC 7.7 RBC 4.37 Hgb 13.1 Hct 39.0 MCV 89 MCH 30 MCHC 34 RDW 12.6 L Plt Count 222 Lymph % (Auto) 20.0 [place] % (Auto) 6.0 Eos % (Auto) 1.4 Baso % (Auto) 0.7 Lymph # (Auto) 1.5 [place] # (Auto) 0.5 Eos # (Auto) 0.1 Baso # (Auto) 0.1 Seg Neutrophils % 71.9 H Seg Neutrophils # 5.6 Sodium 136 L Potassium 3.3 L Chloride 98.2 Carbon Dioxide 30 Anion Gap 11 BUN 4 L Creatinine 0.9 Estimated GFR > 60 BUN/Creatinine Ratio 4 Glucose 95 Calcium 8.9 C-Reactive Protein 11.40 H Lipase 47
--- NOTE | 2022-01-31 17:27 | Progress Note ---
Assessment and Plan Assessment and plan: #Sepsis secondary to acute pancreatitisresolved #Acute colitis -likely secondary to alcohol abuse -continue IV hydration, PRN pain medications -Advancing diet from clear liquids to GI soft diet to regular diet tomorrow morning -continue levaquin and flagyl for possible colitis seen on CT -GI following, assistance appreciated #Alcohol abuse #Tobacco abuse -patient reports binge drinking and lack of withdrawal when he is alcohol free -Smoking and alcohol cessation counseling, supportive care, behavior change counseling, +15 minutes #HIV infection -continue appropriate Genvoya substituted anti-retrovirals #Advanced care planning -Disease education conducted, care plan discussed, diagnoses discussed, prognosi s discussed, and patient acknowledges understanding with care plan -Time: +30 min #Discharge planning - Patient is pending ability to tolerate regular diet - Case management has been made aware. - Discharge is tentatively 02/01/2022 Disposition Plan: Pending possible discharge tomorrow Total Time Spent with Patient (Minutes): 45 minutes History Interval history: No acute events overnight. Hospitalist Physical - Constitutional Vitals: Temp Pulse Resp BP Pulse Ox 98.3 F 64 16 125/67 99 01/31/22 11:51 01/31/22 11:51 01/31/22 12:00 01/31/22 11:51 01/31/22 12:00 General appearance: Present: no acute distress, well-nourished - EENT Eyes: Present: PERRL, EOM intact ENT: hearing intact, clear oral mucosa, dentition normal - Neck Neck: Present: supple, normal ROM - Respiratory Respiratory effort: normal Respiratory: bilateral: CTA - Cardiovascular Rhythm: regular Heart Sounds: Present: S1 & S2 - Extremities Extremities: no ischemia, pulses intact, pulses symmetrical, No edema, normal temperature, normal color, Full ROM Peripheral Pulses: within normal limits - Abdominal General gastrointestinal: soft, non-tender, non-distended, normal bowel sounds - Integumentary Integumentary: Present: clear, warm, dry - Psychiatric Psychiatric: appropriate mood/affect, intact judgment & insight, memory intact, cooperative - Neurologic Neurologic: CNII-XII intact, moves all extremities HEART Score - HEART Score Troponin: Troponin T < 0.010 ng/mL (0.00-0.029) 01/28/22 23:35 Results - Labs CBC & Chem 7: 01/31/22 07:47 01/31/22 07:47 Labs: Laboratory Last Values WBC 7.7 K/mm3 (4.5-11.0) 01/31/22 07:47 RBC 4.37 M/mm3 (3.65-5.03) 01/31/22 07:47 Hgb 13.1 gm/dl (11.8-15.2) 01/31/22 07:47 Hct 39.0 % (35.5-45.6) 01/31/22 07:47 MCV 89 fl (84-94) 01/31/22 07:47 MCH 30 pg (28-32) 01/31/22 07:47 MCHC 34 % (32-34) 01/31/22 07:47 RDW 12.6 % (13.2-15.2) L 01/31/22 07:47 Plt Count 222 K/mm3 (140-440) 01/31/22 07:47 Lymph % (Auto) 20.0 % (13.4-35.0) 01/31/22 07:47 [place] % (Auto) 6.0 % (0.0-7.3) 01/31/22 07:47 Eos % (Auto) 1.4 % (0.0-4.3) 01/31/22 07:47 Baso % (Auto) 0.7 % (0.0-1.8) 01/31/22 07:47 Lymph # (Auto) 1.5 K/mm3 (1.2-5.4) 01/31/22 07:47 [place] # (Auto) 0.5 K/mm3 (0.0-0.8) 01/31/22 07:47 Eos # (Auto) 0.1 K/mm3 (0.0-0.4) 01/31/22 07:47 Baso # (Auto) 0.1 K/mm3 (0.0-0.1) 01/31/22 07:47 Add Manual Diff Complete 01/28/22 23:35 Total Counted 100 01/28/22 23:35 Seg Neutrophils % 71.9 % (40.0-70.0) H 01/31/22 07:47 Seg Neuts % (Manual) 79.0 % (40.0-70.0) H 01/28/22 23:35 Band Neutrophils % 0 % 01/28/22 23:35 Lymphocytes % (Manual) 16.0 % (13.4-35.0) 01/28/22 23:35 Reactive Lymphs % (Man) 0 % 01/28/22 23:35 Monocytes % (Manual) 5.0 % (0.0-7.3) 01/28/22 23:35 Eosinophils % (Manual) 0 % (0.0-4.3) 01/28/22 23:35 Basophils % (Manual) 0 % (0.0-1.8) 01/28/22 23:35 Metamyelocytes % 0 % 01/28/22 23:35 Myelocytes % 0 % 01/28/22 23:35 Promyelocytes % 0 % 01/28/22 23:35 Blast Cells % 0 % 01/28/22 23:35 Nucleated RBC % Not Reportable 01/28/22 23:35 Seg Neutrophils # 5.6 K/mm3 (1.8-7.7) 01/31/22 07:47 Seg Neutrophils # Man 18.5 K/mm3 (1.8-7.7) H 01/28/22 23:35 Band Neutrophils # 0.0 K/mm3 01/28/22 23:35 Lymphocytes # (Manual) 3.7 K/mm3 (1.2-5.4) 01/28/22 23:35 Abs React Lymphs (Man) 0.0 K/mm3 01/28/22 23:35 Monocytes # (Manual) 1.2 K/mm3 (0.0-0.8) H 01/28/22 23:35 Eosinophils # (Manual) 0.0 K/mm3 (0.0-0.4) 01/28/22 23:35 Basophils # (Manual) 0.0 K/mm3 (0.0-0.1) 01/28/22 23:35 Metamyelocytes # 0.0 K/mm3 01/28/22 23:35 Myelocytes # 0.0 K/mm3 01/28/22 23:35 Promyelocytes # 0.0 K/mm3 01/28/22 23:35 Blast Cells # 0.0 K/mm3 01/28/22 23:35 WBC Morphology Not Reportable 01/28/22 23:35 Hypersegmented Neuts Not Reportable 01/28/22 23:35 Hyposegmented Neuts Not Reportable 01/28/22 23:35 Hypogranular Neuts Not Reportable 01/28/22 23:35 Smudge Cells Not Reportable 01/28/22 23:35 Toxic Granulation Not Reportable 01/28/22 23:35 Toxic Vacuolation Not Reportable 01/28/22 23:35 Dohle Bodies Not Reportable 01/28/22 23:35 Pelger-Huet Anomaly Not Reportable 01/28/22 23:35 Gwen Rods Not Reportable 01/28/22 23:35 Platelet Estimate Not Reportable 01/28/22 23:35 Clumped Platelets Not Reportable 01/28/22 23:35 Plt Clumps, EDTA Not Reportable 01/28/22 23:35 Large Platelets Not Reportable 01/28/22 23:35 Giant Platelets Not Reportable 01/28/22 23:35 Platelet Satelliting Not Reportable 01/28/22 23:35 Plt Morphology Comment Not Reportable 01/28/22 23:35 RBC Morphology Normal 01/28/22 23:35 Dimorphic RBCs Not Reportable 01/28/22 23:35 Polychromasia Not Reportable 01/28/22 23:35 Hypochromasia Not Reportable 01/28/22 23:35 Poikilocytosis Not Reportable 01/28/22 23:35 Anisocytosis Not Reportable 01/28/22 23:35 Microcytosis Not Reportable 01/28/22 23:35 Macrocytosis Not Reportable 01/28/22 23:35 Spherocytes Not Reportable 01/28/22 23:35 Pappenheimer Bodies Not Reportable 01/28/22 23:35 Sickle Cells Not Reportable 01/28/22 23:35 Target Cells Not Reportable 01/28/22 23:35 Tear Drop Cells Not Reportable 01/28/22 23:35 Ovalocytes Not Reportable 01/28/22 23:35 Helmet Cells Not Reportable 01/28/22 23:35 [place] Bodies Not Reportable 01/28/22 23:35 [place] Rings Not Reportable 01/28/22 23:35 [place] Cells Not Reportable 01/28/22 23:35 Bite Cells Not Reportable 01/28/22 23:35 Crenated Cell Not Reportable 01/28/22 23:35 Elliptocytes Not Reportable 01/28/22 23:35 Acanthocytes (Spur) Not Reportable 01/28/22 23:35 Rouleaux Not Reportable 01/28/22 23:35 Hemoglobin C Crystals Not Reportable 01/28/22 23:35 Schistocytes Not Reportable 01/28/22 23:35 Malaria parasites Not Reportable 01/28/22 23:35 [place] Bodies Not Reportable 01/28/22 23:35 Hem Pathologist Commnt No 01/28/22 23:35 Sodium 136 mmol/L (137-145) L 01/31/22 07:47 Potassium 3.3 mmol/L (3.6-5.0) L 01/31/22 07:47 Chloride 98.2 mmol/L (98-107) 01/31/22 07:47 Carbon Dioxide 30 mmol/L (22-30) 01/31/22 07:47 Anion Gap 11 mmol/L 01/31/22 07:47 BUN 4 mg/dL (9-20) L 01/31/22 07:47 Creatinine 0.9 mg/dL (0.8-1.3) 01/31/22 07:47 Estimated GFR > 60 ml/min 01/31/22 07:47 BUN/Creatinine Ratio 4 % 01/31/22 07:47 Glucose 95 mg/dL (75-100) 01/31/22 07:47 Ketones Quantitative Negative (Negative) 01/28/22 23:35 Lactic Acid 1.40 mmol/L (0.7-2.0) 01/29/22 07:30 Calcium 8.9 mg/dL (8.4-10.2) 01/31/22 07:47 Total Bilirubin 0.50 mg/dL (0.1-1.2) 01/28/22 23:35 AST 37 units/L (5-40) 01/28/22 23:35 ALT 32 units/L (7-56) 01/28/22 23:35 Alkaline Phosphatase 62 units/L (35-129) 01/28/22 23:35 Total Creatine Kinase 135 units/L (55-170) 01/28/22 23:35 Total Creatine Kinase 135 units/L (55-170) 01/28/22 23:35 Troponin T < 0.010 ng/mL (0.00-0.029) 01/28/22 23:35 C-Reactive Protein 11.40 mg/dL (0.00-1.30) H 01/31/22 06:18 Total Protein 8.7 g/dL (6.3-8.2) H 01/28/22 23:35 Albumin 5.0 g/dL (3.9-5) 01/28/22 23:35 Albumin/Globulin Ratio 1.4 % 01/28/22 23:35 Lipase 47 units/L (13-60) 01/31/22 06:18 Urine Color Yellow (Yellow) 01/28/22 Unknown Urine Turbidity Clear (Clear) 01/28/22 Unknown Specific [place] (Man) 1.010 (1.003-1.030) 01/28/22 Unknown Ur Protein (Man) 1+ mg/dL (Negative) 01/28/22 Unknown Ur Ketones (Man) 4+ (Negative) 01/28/22 Unknown Ur Nitrite (Man) Negative (Negative) 01/28/22 Unknown Urine Bilirubin (Man) Negative (Negative) 01/28/22 Unknown Leukocyte Esterase (Man) Negative (Negative) 01/28/22 Unknown Urine WBC (Auto) 1.0 /HPF (0.0-6.0) 01/28/22 Unknown Urine RBC (Auto) 1.0 /HPF (0.0-6.0) 01/28/22 Unknown U Epithel Cells (Auto) < 1.0 /HPF (0-13.0) 01/28/22 Unknown Urine RBC (Manual) Negative (Negative) 01/28/22 Unknown Hyaline Casts 1 /LPF 01/28/22 Unknown Urine Mucus 3+ /HPF 01/28/22 Unknown Salicylates < 0.3 mg/dL (2.8-20.0) L 01/28/22 23:35 Urine Opiates Screen Positive 01/28/22 05:33 Urine Methadone Screen Negative 01/28/22 05:33 Ur Barbiturates Screen Negative 01/28/22 05:33 Ur Phencyclidine Scrn Negative 01/28/22 05:33 Ur Amphetamines Screen Negative 01/28/22 05:33 U Benzodiazepines Scrn Negative 01/28/22 05:33 Urine Cocaine Screen Negative 01/28/22 05:33 U Marijuana (THC) Screen Negative 01/28/22 05:33 Drugs of Abuse Note Disclamer 01/28/22 05:33 Plasma/Serum Alcohol 0.05 % (0-0.07) 01/28/22 23:35 Baptiste/IV: Voiding Method Urinal Active Medications - Current Medications Current Medications: Generic Name Dose Route Start Last Admin Trade Name Freq PRN Reason Stop Dose Admin Acetaminophen 650 mg 01/29/22 08:30 Acetaminophen 325 Mg Tab PO Q4H PRN Pain MILD(1-3)/Fever >100.5/R[place] Dolutegravir Sodium 50 mg 01/30/22 11:00 01/31/22 10:44 Dolutegravir 50 Mg Tab PO 50 mg DAILY [place] Administration Emtricitabine 200 mg 01/30/22 11:00 01/31/22 10:44 Emtricitabine 200 Mg Cap PO 200 mg QDAY [place] Administration Famotidine 20 mg 01/31/22 10:30 01/31/22 10:45 Famotidine 20 Mg Tab PO 20 mg BID [place] Administration Heparin Sodium (Porcine) 5,000 unit 01/29/22 10:00 01/31/22 10:45 Heparin 5,000 Unit/1 Ml Vial SUB-Q 5,000 unit Q12HR [place] Administration Dextrose/Sodium Chloride 1,000 mls @ 100 mls/hr 01/29/22 08:00 01/31/22 10:48 D5/0.45ns IV 100 mls/hr DIRECT [place] Administration Levofloxacin/Dextrose 750 mg in 150 mls @ 100 mls/hr 01/29/22 09:00 01/31/22 10:44 Levaquin 750mg/150ml IV 100 mls/hr Q24H [place] Administration Protocol Metronidazole 500 mg in 100 mls @ 100 mls/hr 01/29/22 09:00 01/31/22 10:44 Flagyl 500 Mg/100 Ml IV 100 mls/hr Q8H [place] Administration Protocol Morphine Sulfate 2 mg 01/29/22 08:30 01/29/22 17:10 Morphine 2 Mg/1 Ml Inj IV 2 mg Q4H PRN Administration Pain, Moderate (4-6) Morphine Sulfate 4 mg 01/29/22 08:00 01/29/22 22:35 Morphine 4 Mg/1 Ml Inj IV 4 mg Q4H PRN Administration Pain , Severe (7-10) Ondansetron HCl 4 mg 01/29/22 18:00 01/29/22 17:10 Ondansetron 4 Mg/2 Ml Inj IV 4 mg Q4H PRN Administration Nausea And Vomiting Sodium Chloride 10 ml 01/29/22 10:00 01/31/22 10:46 Sodium Chloride 0.9% 10 Ml Flush Syringe IV 10 ml BID [place] Administration Sodium Chloride 10 ml 01/29/22 08:30 Sodium Chloride 0.9% 10 Ml Flush Syringe IV PRN PRN LINE FLUSH Tenofovir Disoproxil Fumarate 300 mg 01/30/22 11:00 01/31/22 10:43 Tenofovir 300 Mg Tab PO 300 mg QDAY [place] Administration
[2022-02-01] MEDS: metroNIDAZOLE/NS 500 MG/100 ML 500 MG/100 ML BAG IV SCH (01:25)
[2022-02-01] MEDS: D5W/0.45% NACL 1,000 ML IV SCH (01:26)
[2022-02-01] MEDS ORDERED: levoFLOXacin 500 MG TAB PO SCH (10:00)
--- NOTE | 2022-02-01 10:01 | Gastroenterology Progress Note ---
Assessment and Plan 1. GI: resolving pancreatitis - continue to advance diet as tolerated - continue IV antibiotics, total 7 days - okay for d/c from GI standpoint Subjective Date of service: 02/01/22 Interval history: Pt seen and examined. Lying comfortably in bed. No complaints overnight, tolerating PO intake. States he is ready to head home. Objective - Constitutional Vitals: Temp Pulse Resp BP Pulse Ox 98.0 F 63 16 116/69 98 02/01/22 03:20 02/01/22 03:20 02/01/22 03:20 02/01/22 03:20 02/01/22 03:20 General appearance: no acute distress - Gastrointestinal General gastrointestinal: Present: soft, tender, distended (mild epigastric tenderness) - Labs CBC & Chem 7: 01/31/22 07:47 01/31/22 07:47
[2022-02-01 12:46] VITALS: BP 121/62
--- NOTE | 2022-02-01 13:00 | Discharge Summary ---
Providers - Providers Date of Admission: 01/29/22 07:10 Date of discharge: 02/01/22 Attending physician: CHI GEE MD 01/29/22 07:10 Consult to Physician [CONS] Routine Comment: Consulting Provider: VALERI MIKE Physician Instructions: Reason For Exam: colitis Primary care physician: ANNA MARIE RILEY Hospitalization Reason for admission: Sepsis secondary to acute pancreatitis Condition: Fair Pertinent studies: Reviewed. Procedures: None. Hospital course: Patient is a 31-year-old male past medical history of HIV who presents to the ED with complaints of vomiting for approximately 12 hours after consuming alcohol for 3 days straight (secondary to social drinking). In the ED, patient was found to be hemodynamically stable but tachycardic with a heart rate of 107. Patient's labs are remarkable for potassium 3.3, bicarbonate 17, and WBC 23.4. The patient underwent CT abdomen and pelvis with contrast revealing acute versus subacute pancreatitis, mild to moderate hepatic steatosis, and questionable mild colitis of the transverse and descending colon versus complete collapse of the colon. Gastroenterology was consulted for further management. Patient was started on IV Levaquin and Flagyl. Patient's pancreatitis is likely secondary to excessive alcohol consumption. Patient was counseled about decreasing his alcohol intake, and the patient expressed understanding. The patient has since been able to tolerate a regular diet, the patient is medically clear for discharge. Patient will complete his antibiotic course (Levaquin 500 mg daily) for a total antibiotic course of 5 days. Disposition: 01 HOME / SELF CARE / HOMELESS Final Discharge Diagnosis (Prints w/discharge instructions): Sepsis secondary to acute pancreatitisresolved, acute colitis, alcohol dependence, HIV infection. Time spent for discharge: 45 min Core Measure Documentation - Palliative Care Palliative Care/ Comfort Measures: Not Applicable - Core Measures Any of the following diagnoses?: none Exam - Constitutional Vitals: Temp Pulse Resp BP Pulse Ox 99.2 F 67 18 121/62 99 02/01/22 12:18 02/01/22 12:18 02/01/22 12:18 02/01/22 12:18 02/01/22 12:18 General appearance: Present: no acute distress, well-nourished - EENT Eyes: Present: PERRL, EOM intact ENT: hearing intact, clear oral mucosa, dentition normal - Neck Neck: Present: supple, normal ROM - Respiratory Respiratory effort: normal Respiratory: bilateral: CTA - Cardiovascular Rhythm: regular Heart Sounds: Present: S1 & S2 - Extremities Extremities: no ischemia, pulses intact, pulses symmetrical, No edema, normal temperature, normal color, Full ROM Peripheral Pulses: within normal limits - Abdominal General gastrointestinal: Present: soft, non-tender, non-distended, normal bowel sounds Male genitourinary: Present: deferred - Rectal Rectal Exam: deferred - Integumentary Integumentary: Present: clear, warm, dry - Musculoskeletal Musculoskeletal: strength equal bilaterally - Psychiatric Psychiatric: appropriate mood/affect, intact judgment & insight, memory intact, cooperative - Neurologic Neurologic: CNII-XII intact, moves all extremities - Allied Health Allied health notes reviewed: nursing Plan Activity: no restrictions Diet: regular Special Instructions: other (Alcohol reduction/cessation) Additional Instructions: Patient is a 31-year-old male past medical history of HIV who presents to the ED with complaints of vomiting for approximately 12 hours after consuming alcohol for 3 days straight (secondary to social drinking). In the ED, patient was found to be hemodynamically stable but tachycardic with a heart rate of 107. Patient's labs are remarkable for potassium 3.3, bicarbonate 17, and WBC 23.4. The patient underwent CT abdomen and pelvis with contrast revealing acute versus subacute pancreatitis, mild to moderate hepatic steatosis, and questionable mild colitis of the transverse and descending colon versus complete collapse of the colon. Gastroenterology was consulted for further management. Patient was started on IV Levaquin and Flagyl. Patient's pancreatitis is likely secondary to excessive alcohol consumption. Patient was counseled about decreasing his alcohol intake, and the patient expressed understanding. The patient has since been able to tolerate a regular diet, the patient is medically clear for discharge. Patient will complete his antibiotic course (Levaquin 500 mg daily) for a total antibiotic course of 5 days. Care Plan Goals: Patient is medically clear for discharge. Assessment: Patient is a 31-year-old male past medical history of HIV who presents to the ED with complaints of vomiting for approximately 12 hours after consuming alcohol for 3 days straight (secondary to social drinking). In the ED, patient was found to be hemodynamically stable but tachycardic with a heart rate of 107. Patient's labs are remarkable for potassium 3.3, bicarbonate 17, and WBC 23.4. The patient underwent CT abdomen and pelvis with contrast revealing acute versus subacute pancreatitis, mild to moderate hepatic steatosis, and questionable mild colitis of the transverse and descending colon versus complete collapse of the colon. Gastroenterology was consulted for further management. Patient was started on IV Levaquin and Flagyl. Patient's pancreatitis is likely secondary to excessive alcohol consumption. Patient was counseled about decreasing his alcohol intake, and the patient expressed understanding. The patient has since been able to tolerate a regular diet, the patient is medically clear for discharge. Patient will complete his antibiotic course (Levaquin 500 mg daily) for a total antibiotic course of 5 days. Follow up with: ANNA MARIE RILEY MD [Primary Care Provider] - 7 Days Forms: Work/School Release Form Prescriptions: levoFLOXacin [Levaquin TAB] 500 mg PO Q24HR #3 tablet
[2022-02-01] MEDS: EMTRICITABINE 200 MG CAP PO SCH (13:03)
[2022-02-01] MEDS: DOLUTEGRAVIR 50 MG TAB PO SCH (13:03)
[2022-02-01] MEDS: FAMOTIDINE 20 MG TAB PO SCH (13:03)
[2022-02-01] MEDS: TENOFOVIR 300 MG TAB PO SCH (13:03)
[2022-02-01] MEDS: HEPARIN 5,000 UNIT/1 ML VIAL SUB-Q SCH (13:04)
== END 2022-02-01 14:52 | disposition home or self-care (01) | DRG 974 ==
LOC: ED 23:23 → 3A 01-29 07:10
PROVIDERS: ADMIT Hospitalist; ATTEND Student in an Organized Health Care Education/Training Program
DX: A41.9 Sepsis, unspecified organism (principal); K85.90 Acute pancreatitis without necrosis or infection, unspecified; B20 Human immunodeficiency virus [HIV] disease; K52.9 Noninfective gastroenteritis and colitis, unspecified; F10.10 Alcohol abuse, uncomplicated; Z72.0 Tobacco use; Y90.0 Blood alcohol level of less than 20 mg/100 ml; R65.20 Severe sepsis without septic shock
CPT/HCPCS: 36415; 74177; 76705; 80048; 80053; 80307; 80320; 81001; 82010; 82140; 82550; 83690; 84484; 85007; 85025; 86140; 94640; 96365; 96375; 96376; 99285; G0378; J3490; J7070; J7517; G0480; J1170; J1335; J1644; J1956; J2270; J2405; J7030; Q9967